=== PATIENT | male | born 1955 | race Two or more races ===

== ENCOUNTER 2018-03-08 17:08 | Emergency (ER) | payer SELFPAY ==
[~2018-03-08] VITALS: Ht 172.7 cm; Wt 76.6 kg
[2018-03-08 17:17] VITALS: BP 129/85
[2018-03-08] MEDS ORDERED: KETOROLAC 30 MG/1 ML IM ONE (18:30)
[2018-03-08] MEDS ORDERED: KETOROLAC 30 MG/1 ML ONE (18:45)
== END 2018-03-08 19:23 | disposition home or self-care (01) ==
LOC: ED 18:00
DX: S20.211A Contusion of right front wall of thorax, initial encounter (principal); E11.9 Type 2 diabetes mellitus without complications; W01.0XXA Fall on same level from slipping, tripping and stumbling without subsequent striking against object, initial encounter; Y93.89 Activity, other specified; Y92.009 Unspecified place in unspecified non-institutional (private) residence as the place of occurrence of the external cause; Y99.8 Other external cause status
CPT/HCPCS: 71101; 73030; 96372; 99284; J1885

== ENCOUNTER 2018-03-25 13:11 | Emergency (ER) | payer MEDICAID, OTHER ==
[~2018-03-25] VITALS: Ht 160 cm; Wt 75.7 kg
[2018-03-25 13:13] VITALS: BP 121/85
[2018-03-25 14:10] LABS: MICROSCOPIC NOT IND
[2018-03-25 14:18] LABS: CULTURE INDICATED? NO
[2018-03-25 14:39] LABS: PH, VENOUS 7.414 pH (7.320-7.420)
[2018-03-25 14:44] LABS: BASOPHILS # (AUTO) 0.02 x10^3/uL (0-0.1); BASOPHILS % (AUTO) 0 % (0-1); EOSINOPHILS # (AUTO) 0.11 x10^3/uL (0-0.4); EOSINOPHILS % (AUTO) 2 % (1-7); LYMPHOCYTES # (AUTO) 1.86 x10^3/uL (1-3.4); LYMPHOCYTES % (AUTO) 37 % (22-44); MD NO; MEAN CORPUSCULAR HEMOGLOBIN 32.4 pg (27.5-34.5); MEAN CORPUSCULAR HGB CONC 34.1 g/dL (33.2-36.2); MEAN PLATELET VOLUME 7.5 fL (7.4-10.4); MONOCYTES # (AUTO) 0.49 x10^3/uL (0.2-0.8); MONOCYTES % (AUTO) 10 % (2-9); NEUTROPHILS # (AUTO) 2.56 x10^3/uL (1.8-6.8); NEUTROPHILS % (AUTO) 51 % (42-75); PLATELET COUNT 190 x10^3/uL (130-400); RED BLOOD COUNT 4.61 x10^6/uL (4.38-5.82); RED CELL DISTRIBUTION WIDTH 12.6 % (9.4-14.8)
[2018-03-25 14:52] LABS: ALANINE AMINOTRANSFERASE 41 U/L (12-78); ALBUMIN 3.6 g/dL (3.4-5.0); ANION GAP 8 mmol/L (5-15); CALCIUM 8.5 mg/dL (8.5-10.1); CHLORIDE 105 mmol/L (98-107); CREATININE 0.89 mg/dL (0.7-1.3)
[2018-03-25] MEDS ORDERED: INSULIN REGULAR 100 UNITS/ML, 3ML VIAL SQ-INSULIN ONE (14:54)
[2018-03-25 14:55] LABS: ALKALINE PHOSPHATASE 116 U/L (45-117); BILIRUBIN,TOTAL 0.3 mg/dL (0.2-1.0)
[2018-03-25] MEDS ORDERED: INSULIN REGULAR 100 UNITS/ML, 3ML VIAL ONE (15:09)
[2018-03-25 15:28] LABS: ACETONE, SERUM Negative (Negative)
== END 2018-03-25 15:33 | disposition home or self-care (01) ==
LOC: ED 15:20
DX: N48.1 Balanitis (principal); B37.9 Candidiasis, unspecified; E11.65 Type 2 diabetes mellitus with hyperglycemia
CPT/HCPCS: 36415; 71045; 80053; 81003; 82010; 82803; 82962; 85025; 93005; 96372; 99285

== ENCOUNTER 2018-08-18 14:10 | Emergency (ER) | payer OTHER ==
[~2018-08-18] VITALS: Ht 157.5 cm; Wt 82.0 kg
[2018-08-18] MEDS ORDERED: HYDROcodone/APAP 5/325 TABLET ONE (15:42)
[2018-08-18] MEDS ORDERED: HYDROcodone/APAP 5/325 TABLET PO ONE (16:00)
[2018-08-18 16:50] VITALS: BP 154/89
== END 2018-08-18 16:51 | disposition home or self-care (01) ==
LOC: ED 16:37
DX: S82.145A Nondisplaced bicondylar fracture of left tibia, initial encounter for closed fracture (principal); E11.9 Type 2 diabetes mellitus without complications; W01.0XXA Fall on same level from slipping, tripping and stumbling without subsequent striking against object, initial encounter; Y93.89 Activity, other specified; Y92.89 Other specified places as the place of occurrence of the external cause; Y99.8 Other external cause status
CPT/HCPCS: 29515; 99284